=== PATIENT | male | born 1955 | race Caucasian/White ===

== ENCOUNTER → 2020-05-08 | Outpatient (CLI) | payer SELFPAY ==
[~2020-05-08] MED LIST: ACET500T15 PO; ASPI81CH4 PO; ASPI81TA86 PO; CAND32TA9 PO; CART240C3 PO; CARV6.25 PO; CENTTAB47 PO; CHLO125TA PO; CLONI1TA PO; COQ-100C5 PO; COZA100T2 PO; DILT240C28 PO; DILT30TA PO; HYDR-2541 PO; HYDR100T PO; LIPI20TA PO; LORA0.5T5 PO; LOSA100T5 PO; NASA0.0517; NEXI40CA PO; NORV5TAB PO; PANT20TA6 PO; PLAV1TAB2 PO; POTA10TA16 PO; PROTPAK PO; ROSU5TAB5 PO; TYLE325T5 PO; VENTAER INH; VITMTA PO; ZETI10TA16 PO
== END ==
LOC: M LABSMTC 10:56
PROVIDERS: ATTEND Anesthesiology
DX: Z01.812 Encounter for preprocedural laboratory examination (principal); Z20.822 Contact with and (suspected) exposure to COVID-19

== ENCOUNTER 2020-05-13 06:15 | Inpatient (IN) | payer BC ==
[2020-05-13] VITALS (17 sets, daily range): BP systolic 106–147; BP diastolic 49–65
[~2020-05-13] VITALS: Ht 182.9 cm; Wt 107.2 kg
[2020-05-13] MEDS ORDERED: ceFAZolin SOD 2 GM in IV 1 EA IV ONE (06:20)
[2020-05-13] MEDS ORDERED: LR 1,000 ML IV ONE (06:20)
[2020-05-13 06:57] LABS: HEMATOCRIT 46.2 % (42.0-52.0); HEMOGLOBIN 16.1 g/dl (13.5-17.5); MEAN CORPUSCULAR HEMOGLOBIN 30.6 pg (27.0-33.0); MEAN CORPUSCULAR HGB CONC 34.8 g/dl (32.0-36.5); MEAN CORPUSCULAR VOLUME 87.7 fl (80.0-96.0); PLATELET COUNT, AUTOMATED 247 10^3/uL (150-450); RED BLOOD COUNT 5.27 10^6/uL (4.30-6.10); WHITE BLOOD COUNT 9.3 10^3/uL (4.0-10.0)
[2020-05-13 07:06] LABS: INR 1.04; PROTHROMBIN TIME 13.8 SECONDS (12.5-14.3)
[2020-05-13 07:07] LABS: PARTIAL THROMBOPLASTIN TIME 25.9 SECONDS (24.2-38.5)
[2020-05-13] MEDS ORDERED: propofoL 200 MG/20 ML VIAL As Ordered ONE ×2 (07:08→10:08)
[2020-05-13] MEDS ORDERED: ROCURONIUM BROMIDE 50 MG/5 ML VIAL As Ordered ONE ×3 (07:09→09:42)
[2020-05-13] MEDS ORDERED: ONDANSETRON 4MG/2ML VIAL As Ordered ONE (07:09)
[2020-05-13] MEDS ORDERED: LIDOCAINE 2% 100MG/5ML SDV (FOR ANES.) As Ordered ONE (07:09)
[2020-05-13] MEDS ORDERED: fentaNYL 100 MCG/2 ML INJECTION (J3010) As Ordered ONE ×2 (07:09→08:32)
[2020-05-13] MEDS ORDERED: MIDAZOLAM INJ 2MG/2ML VIAL (J2250 PER 1MG) As Ordered ONE (07:09)
[2020-05-13] MEDS ORDERED: dexameTHASONE 4 MG/ML 1ML VIAL (J1100 PER 1MG) As Ordered ONE (07:09)
[2020-05-13] MEDS ORDERED: EPINEPHrine INJ 1 MG/ML 1ML AMP As Ordered ONE (07:10)
[2020-05-13] MEDS ORDERED: THROMBIN SOLN 20,000 UNITS KIT As Ordered ONE (07:13)
[2020-05-13] MEDS ORDERED: HEPARIN SOD (PORCINE) 5000UNITS/ML 1ML VIAL/SYRINGE As Ordered ONE ×2 (07:13→07:16)
[2020-05-13] MEDS ORDERED: LIDOCAINE 1% SDV 30ML VIAL As Ordered ONE (07:13)
[2020-05-13] MEDS ORDERED: BUPIVACAINE HCL 0.25% 30ML VIAL As Ordered ONE (07:13)
[2020-05-13 07:21] LABS: BLOOD UREA NITROGEN 25 MG/DL (7-18); CALCIUM LEVEL 9.3 MG/DL (8.8-10.2); CARBON DIOXIDE LEVEL 30 MEQ/L (21-32); CHLORIDE LEVEL 106 MEQ/L (98-107); CREATININE FOR GFR 1.12 MG/DL (0.70-1.30); GLOMERULAR FILTRATION RATE > 60.0 (>49); GLUCOSE, FASTING 125 MG/DL (70-100); POTASSIUM SERUM 3.6 MEQ/L (3.5-5.1); SODIUM LEVEL 140 MEQ/L (136-145)
[2020-05-13] MEDS ORDERED: NITROGLYCERIN IN D5W 25MG/250ML (100MCG/ML) As Ordered ONE ×2 (07:25→11:30)
[2020-05-13] MEDS ORDERED: PHENYLephrine 500MCG 5ML (100MCG/ML) SYRINGE As Ordered ONE ×2 (08:11→08:43)
[2020-05-13] MEDS ORDERED: BUPIVACAINE/EPIN 0.25% 30 ML VIAL As Ordered ONE (08:39)
[2020-05-13] MEDS ORDERED: ePHEDrine SULFATE 25 MG/5 ML(5MG/ML) SYRINGE As Ordered ONE ×3 (08:43→09:24)
[2020-05-13] MEDS: MULTIVITAMINS/MINERALS THERAP 1 TAB PO SCH (09:00)
[2020-05-13] MEDS ORDERED: SUGAMMADEX SODIUM 500 MG/5 ML VIAL (BRIDION) As Ordered ONE (10:08)
[2020-05-13] MEDS ORDERED: ACETAMINOPHEN 1000MG 100ML IV BTL (OFIRMEV) (J0131 PER 10MG) As Ordered ONE (10:08)
[2020-05-13] MEDS ORDERED: LABETALOL 100MG/20ML VIAL IV PRN (10:45)
[2020-05-13] MEDS ORDERED: CHLORASEPTIC SPRAY MT PRN (10:45)
[2020-05-13] MEDS ORDERED: hydrALAZINE 20MG/ML 1ML VIAL (J0360 PER 20MG) IV PRN (10:45)
[2020-05-13] MEDS ORDERED: PERCOCET 5MG/325MG TAB PO PRN ×2 (10:45)
[2020-05-13] MEDS ORDERED: ONDANSETRON 4MG/2ML VIAL IV PRN ×2 (10:45→11:10)
--- NOTE | 2020-05-13 10:45 | ROOPDOC ---
[facility] Report Of Operation Report of Operation DATE OF PROCEDURE: 05/13/20 PREPROCEDURE DIAGNOSES: Symptomatic right carotid stenosis POSTPROCEDURE DIAGNOSES: Same PROCEDURE: Right carotid endarterectomy with xenosure patch angioplasty SURGEON: Lexus Rucker MD ANESTHESIA: Gen. anesthesia and local INDICATION FOR PROCEDURE: This is a very pleasant 64-year-old patient with symptomatic right carotid stenosis with amaurosis fugax, with 75-80% ICA stenosis present on the right. Risks benefits and alternatives to a right carotid endarterectomy were explained to the patient and he is agreeable to pr oceed. He completed his stress test yesterday, and are anesthesia team and I have reviewed this and feel the patient is a suitable candidate to proceed with endarterectomy today. Informed consent was obtained. REPORT OF OPERATION: The patient was brought to the operating room in stable condition. General anesthesia and antibiotics were administered without complication. His right neck and chest were prepped and draped in a sterile fashion. A timeout was performed. Local anesthesia was a blow off worker to the skin and subcutaneous tissue over the anterior border of the right sternocleidomastoid. An incision was made obliquely over the anterior border of the sternocleidomastoid. This was carried down to the subcutaneous tissue and the platysma with Bovie cautery. The jugular vein was identified and skeletonized along its medial border. Branching veins were carefully suture ligated and divided. We dissected down to the common carotid artery which was skeletonized proximally and distally. A vessel loop was placed. We dissected onto the external carotid artery and the superior thyroid artery and external carotid artery were skeletonized and Vesseloops were placed. We identified the hypoglossal nerve. The internal carotid artery was deep, with plaque extending fairly distal into the artery, so we needed to dissect cranially beyond the hypoglossal nerve. We carefully mobilized it is much as we could without disturbing it too much. 5000 units of heparin was given a lot circulate. A vessel loop was placed distally on the internal carotid artery beyond the area of palpable plaque. We then secured the Vesseloops. An arteriotomy was made from the common carotid artery up over the bulb beyond the plaque into the internal carotid artery. We placed a shunt into the internal carotid artery and noted good backbleeding. We then placed the proximal end of the shunt and the common carotid artery and both Vesseloops are resecured. Flow was confirmed through the shunt with a Doppler. Next, we performed the endarterectomy and all plaque and loose intima was removed. We noticed that the patient had very thick friable granular plaque along with some smooth plaque as well. This was sent for pathology. Once we were satisfied with the endarterectomy and had a good endpoint proximally and distally, and had successfully remove plaque from the external carotid artery, we irrigated with heparinized saline. We then selected a xenosure patch and anastomosis in a running fashion with 5-0 Prolene hemostatic suture. Before the final sutures are placed, we flushed inflow and outflow arteries and irrigated with heparinized saline. We removed the shunt. We irrigated again with heparinized saline. We then placed the final sutures. We restart flow first through the external carotid artery and superior thyroid ar felipe, then the common carotid artery, and lastly through the internal carotid artery. We had a small amount of bleeding from the proximal patch on the distal internal carotid artery, but were able to carefully gain good patch hemostasis with a Prolene stitch. We irrigated with saline. Surgicel was placed over the patch for a minute and good hemostasis was noted. We irrigated again with saline. A ANASTASIIA drain was placed and sutured at the skin with a nylon suture placed to bulb suction. We then approximated the deep tissues with interrupted 2-0 Vicryl suture. We closed the platysmal layer with a running 2-0 Vicryl suture. We approximated the deep dermal layer with interrupted 4-0 Vicryl suture. The skin was closed with 4-0 subcuticular Monocryl suture. Incision was clean and dry. Mastisol and Steri-Strips were used to dress the incisions. A drain sponge was placed around the drain. The patient was then allowed to awaken from anesthesia. He was able to follow commands and move his left upper and lower extremity equal to his right. We then extubated him and took him to recovery in stable condition. No focal neurologic deficits were noted. ESTIMATED BLOOD LOSS: Approximately 200 mL. COMPLICATIONS: None. PLAN: The patient will be admitted to the hospitalist service, ICU. We will continue to follow his neurovascular checks and monitor his right neck for hematoma. We will continue aspirin Plavix in the perioperative period to minimize risk of perioperative stroke. We will monitor the blood pressure with a goal systolic blood pressure less than 150 mmHg, heart rate goal less than 80. We will keep the head of bed elevated, okay for ice to the right neck, and monitor drain output from the ANASTASIIA drain. We will give him a regular diet. If the patient is stable in the morning, we will plan to discontinue the arterial line and ambulate the patient, and if this also goes well, the patient will be able to discharge home from the ICU tomorrow. We appreciate the opportunity to participate in the care of this patient. LEXUS RUCKER MD May 13, 2020 10:45
[2020-05-13] MEDS ORDERED: oxyCODONE 5MG TAB PO PRN (11:10)
[2020-05-13] MEDS ORDERED: fentaNYL 100 MCG/2 ML INJECTION (J3010) IV PRN (11:10)
[2020-05-13] MEDS ORDERED: LR 1,000 ML IV SCH (11:10)
[2020-05-13] MEDS ORDERED: ALBUTEROL 90 MCG/ACT 8GM HFA INHALER INH PRN (12:15)
[2020-05-13] MEDS ORDERED: PILL CUTTER 1 EACH XX PRN (13:00)
--- NOTE | 2020-05-13 13:02 | HPEPDOC ---
[facility] Medical History & Physical Date of Admission May 13, 2020 Date of Service: May 13, 2020 Attending Physician: Isa Cano MD History and Physical HISTORY OF PRESENT ILLNESS: Patient is a 64-year-old male with past medical history of hypertension, anxiety, asthma, heart disease, stroke, right carotid artery stenosis who had elective right carotid artery endarterectomy on 05/13/[address] Rucker. According to notes, the patient had amaurosis fugax early 04/2020, leading to a carotid artery US being done and 70-80% stenosis of the R carotid artery being found. Options were discussed with patient and ultimately elective surgery was chosen. Pre-, intra- and post-operative there were no complications. EBL 200 mL. Upon evaluation in PACU, patient had no acute complaints. VS were stable, pain controlled. He was admitted to ICU for close monitoring overnight, vascular surgery consulted to follow. REVIEW OF SYSTEMS: CONSTITUTIONAL: Denies lack of energy, unexplained weight gain or weight loss, loss of appetite, fever, night sweats EYES: Denies eye drainage, eye pain, visual changes, dry/irritated eye EARS, NOSE, MOUTH, THROAT: Denies difficulty hearing, ringing in ears, mouth sores, loose teeth, sore throat, facial numbness or pain NECK: Denies swollen glands CARDIOVASCULAR: Denies irregular heartbeat, racing heart, chest pains, swelling of feet or legs, pain in legs with walking RESPIRATORY: Denies shortness of breath, night sweats, wheezing, sputum production, oxygen at home, coughing up blood, cough lasting > 1 month GASTROINTESTINAL: Denies abdominal pain, constipation, bloody stool, diarrhea, heartburn, nausea, vomiting GENITOURINARY: Denies painful urination, bloody urine, frequent urination, urgency, leaking urine, impotence MUSCULOSKELETAL: Denies joint pain, muscle pain, leg swelling INTEGUMENTARY: Denies rash, itching, new skin lesion, change in existing skin lesion, hair loss or increase, breast changes. NEUROLOGICAL: Denies headaches, dizziness, difficulty walking, numbness or tingling PSYCHIATRIC: Denies depression, anxiety, recurrent bad thoughts, mood swings, hallucinations PAST MEDICAL HISTORY: hypertension, anxiety, asthma, heart disease, stroke, right carotid artery stenosis, HLD, OA, CVA/TIA, aortic aneurysm thoracic PAST SURGICAL HISTORY: [id number] Repair of right leg [id number] Cataract [id number]/14/2017 and 06/28/2017 Right knee [id number]/2018 Right shoulder [id number]/25/2018 FAMILY HISTORY: cancer, heart disease, HTN SOCIAL HISTORY: Denies smoking or illicit drug use. Social alcohol use. Full code. ALLERGIES: Please see below. HOME MEDICATIONS: Please see below. PHYSICAL EXAMINATION: VS: Please see below CONSTITUTIONAL: No acute distress, resting comfortably, AAO x 3 EYES: PERRLA, EOM intact HENT, MOUTH: ANASTASIIA drain in right side of neck. Normocephalic, atraumatic, moist mucous membranes, NC in place NECK: SUPPLE, no JVD, no lymphadenopathy, no carotid bruit CV: Regular rate and rhythm, S1S2 normal, no murmurs/rubs/gallops RESPIRATORY: Clear to auscultation bilaterally, no rales/rhonchi/wheezes GI: BS positive in 4 quadrants, soft, nontender, nondistended, no rebound or guarding, no organomegaly : Deferred MUSCULOSKELETAL: radial A line present in LUE. Normal ROM of all extremities. No cyanosis, clubbing, swelling, joint deformity, +1 pitting lower extremity edema INTEGUMENTARY: Intact, no rashes, no lesions, no erythema NEUROLOGIC: Cranial Nerves II-XII are intact, no focal deficits PSYCHIATRIC: Mood and affect are normal LABORATORY DATA: Please see below IMAGING: None ASSESSMENT: Patient is a 64-year-old male with past medical history of hypertension, anxiety, asthma, heart disease, stroke, right carotid artery stenosis who had elective right carotid artery endarterectomy on 05/13/[address] Rucker. Admitted overnight for observation in ICU PLAN: Right carotid artery stenosis s/p right carotid endarterectomy -BP and pain controlled -Admitting to ICU for close monitoring, directions for strict BP control by vascular surgery, A line in place -C/w ASA, plavix, statin -Vascular surgery to follow HTN -Stable -C/w home meds, hydralazine PRN Anxiety -Stable Asthma -Stable -Albuterol PRN CAD -c/w BB, ASA, plavix, statin TIA/CVA -ASA, statin, plavix GI px -PPI DVT px -Teds DISPOSITION: Admitted to ICU for close monitoring overnight. Vascular surgery consulted. Plan is discharge home when medically improved. Vital Signs Vital Signs Date Time Temp Pulse Resp B/P (MAP) Pulse Ox O2 Delivery O2 Flow Rate FiO2 05/13/20 11:40 97.6 56 18 123/68 (86) 96 Nasal Cannula 2.0 Laboratory Data Labs 24H Laboratory Tests 2 05/13/20 06:37: Nucleated Red Blood Cells % (auto) 0.0, Prothrombin Time 13.8, Prothromb Time International Ratio 1.04, Activated Partial Thromboplast Time 25.9, Anion Gap 4L, Glomerular Filtration Rate > 60.0, Calcium Level 9.3 CBC/BMP Laboratory Tests 05/13/20 06:37 Home Medications Scheduled Amlodipine Besylate (Norvasc) 5 Mg Tab, 5 MG PO DAILY Aspirin (Aspirin) 81 Mg Tab.chew, 81 MG PO QPM Candesartan Cilexetil (Candesartan Cilexetil) 32 Mg Tablet, 32 MG PO DAILY Carvedilol (Carvedilol) 6.25 Mg Tablet, 6.25 MG PO BID Chlorthalidone (Chlorthalidone) 25 Mg Tablet, 12.5 MG PO DAILY Clopidogrel Bisulfate (Plavix) 75 Mg Tab, 75 MG PO DAILY Ezetimibe (Zetia) 10 Mg Tablet, 10 MG PO DAILY Multivitamins (Thera M Plus Tablet) 1 Each Tablet, 1 TAB PO DAILY Pantoprazole Sodium (Pantoprazole Sodium) 20 Mg Tablet.dr, 20 MG PO DAILY Potassium Chloride (Potassium Chloride) 10 Meq Tab.er.prt, 10 MEQ PO DAILY Rosuvastatin Calcium (Rosuvastatin Calcium) 5 Mg Tablet, 5 MG PO QPM Ubidecarenone (Coq-10) 100 Mg Capsule, 100 MG PO DAILY Scheduled PRN Acetaminophen (Acetaminophen) 500 Mg Tablet, 500 MG PO PRN PRN for PAIN Albuterol Sulfate (Ventolin Hfa) 18 Gm Hfa.aer.ad, 2 PUFFS INH QID PRN for DYSPNEA Allergies Coded Allergies: lisinopril (Verified Allergy, Intermediate, scratchy throat, 04/29/20) Vtkrjqb-Joa-Gtd Reductase Inhibitor (Verified Adverse Reaction, Intermediate, muscle aches, 04/29/20) A-FIB/CHADSVASC A-FIB History Current/History of A-Fib/PAF?: No Current PO Anticoag Therapy: No Age/Risk Factor Scoring CHADSVASC: CHADSVASC Response (Comments) Value Age Risk Factor Age < 65 years old 0 Gender Risk Factor Male 0 Hx of CHF No 0 Hx of HTN Yes 1 Hx of Stroke/TIA/or VTE Yes 2 Hx of Diabetes No 0 Hx of Vascular Disease No 0 Total 3 Treatment Treatment ordered: Other Other anticoagulant ordered: Isa Mukherjee MD May 13, 2020 13:02
[2020-05-13] MEDS: CARVedilol 6.25 MG TAB PO SCH (20:23)
[2020-05-13] MEDS ORDERED: EZETIMIBE 10 MG TAB (ZETIA) PO SCH (21:00)
[2020-05-13] MEDS ORDERED: ASPIRIN 81 MG CHEW TABLET PO SCH (21:00)
[2020-05-13] MEDS ORDERED: CANDESARTAN 16 MG TABLET PO SCH (21:00)
[2020-05-13] MEDS ORDERED: ROSUVASTATIN 10 MG TAB (CRESTOR) PO SCH (21:00)
[2020-05-14] VITALS (9 sets, daily range): BP systolic 110–131; BP diastolic 47–65
[2020-05-14 04:45] LABS: MEAN CORPUSCULAR HEMOGLOBIN 30.8 pg (27.0-33.0); MEAN CORPUSCULAR HGB CONC 34.7 g/dl (32.0-36.5); MEAN CORPUSCULAR VOLUME 88.6 fl (80.0-96.0); PLATELET COUNT, AUTOMATED 211 10^3/uL (150-450); RED BLOOD COUNT 4.29 10^6/uL (4.30-6.10); WHITE BLOOD COUNT 17.7 10^3/uL (4.0-10.0)
[2020-05-14 04:59] LABS: HEMOGLOBIN 13.2 g/dl (13.5-17.5)
[2020-05-14 05:05] LABS: BLOOD UREA NITROGEN 25 MG/DL (7-18); CALCIUM LEVEL 8.7 MG/DL (8.8-10.2); CARBON DIOXIDE LEVEL 28 MEQ/L (21-32); CHLORIDE LEVEL 108 MEQ/L (98-107); CREATININE FOR GFR 1.04 MG/DL (0.70-1.30); GLOMERULAR FILTRATION RATE > 60.0 (>49); GLUCOSE, FASTING 150 MG/DL (70-100); POTASSIUM SERUM 3.6 MEQ/L (3.5-5.1); SODIUM LEVEL 140 MEQ/L (136-145)
[2020-05-14] MEDS ORDERED: CHLORTHALIDONE 12.5MG PER 1/2 TABLET PO SCH (09:00)
[2020-05-14] MEDS ORDERED: amLODIPine 5 MG TAB PO SCH (09:00)
[2020-05-14] MEDS ORDERED: POTASSIUM CHLORIDE 10 MEQ SR TABLET PO SCH (09:00)
[2020-05-14] MEDS ORDERED: CLOPIDOGREL 75 MG TAB PO SCH (09:00)
[2020-05-14] MEDS ORDERED: PANTOPRAZOLE 20 MG TAB PO SCH (09:00)
[2020-05-14] MEDS ORDERED: PERCOCET PO ×2 (09:03→09:05)
[2020-05-14] MEDS ORDERED: ACET-907 PO (09:03)
--- NOTE | 2020-05-14 09:07 | IPNPDOC ---
Date Seen The patient was seen on 05/14/20. Progress Note Patient seen and examined postop day 1 status post right carotid endarterectomy with patch angioplasty. He is doing well. He is tolerating a diet. We had to do a pretty high dissection due to very distal plaque in the internal carotid artery, and mobilized the hypoglossal nerve to do this, and he did have some tongue deviation to the right yesterday that has improved today. His tongue is almost midline. He complained of some mild numbness anterior to the incision on the neck, which is expected after surgical incision. He has no significant swelling or tenderness over the incision. The Steri-Strips are clean dry and intact. ANASTASIIA drain is minimal output and was removed today. Steri-Strips and a dry dressing were placed over the open aspect after drain removal. The patient tolerated this well. He is urinating without difficulty. His blood pressure and heart rate are at his baseline. No significant hypo-or hypertension postop. He has minimal complaints of pain and has not required narcotics. His speech is clear. He moves all extremities equally. He has equal strength in the left and right upper extremities and left and right lower extremities. I discussed with the patient that if he is able to ambulate today after discontinuation of his arterial line, he will be okay to DC home from a vascular standpoint. Discharge instructions: Follow-up 1 week to check incision. Follow-up in one month for repeat carotid duplex postop. Try to leave Steri-Strips intact for 1 week to help incisions to heal. Okay to remove gauze and paper tape later today if no drainage from the ANASTASIIA site. Okay to shower, use baby shampoo until incision completely healed, Pat incision dry after shower with clean towel. Try to sit up as much as possible to minimize swelling in the neck over the next few days, and ice to the neck if needed for comfort. No strenuous exercise or lifting greater than 5 pounds for 1 week. No driving for 1 week. We appreciate the opportunity to participate in the care of this patient. VS, I&O, 24H, Fishbone Vital Signs/I&O Vital Signs Date Time Temp Pulse Resp B/P (MAP) Pulse Ox O2 Delivery O2 Flow Rate FiO2 05/14/20 06:00 54 131/57 97 Room Air 110/56 4/8/21 05:00 18 05/14/20 04:00 97.0 05/13/20 11:40 2.0 I&O- Last 24 Hours up to 6 AM 05/14/20 06:00 Intake Total 555 ml Output Total 1015 ml Balance -460 ml Laboratory Data 24H LABS Laboratory Tests 2 05/14/20 04:16: Nucleated Red Blood Cells % (auto) 0.0, Anion Gap 4L, Glomerular Filtration Rate > 60.0, Calcium Level 8.7L CBC/BMP Laboratory Tests 05/14/20 04:16 BLANCO FITZPATRICK MD May 14, 2020 09:07
[2020-05-14] MEDS: MULTIVITAMINS/MINERALS THERAP 1 TAB PO SCH (09:41)
[2020-05-14] MEDS: CARVedilol 6.25 MG TAB PO SCH (09:42)
--- NOTE | 2020-05-14 13:42 | DS.PDOC ---
Discharge Summary General Date of Admission May 13, 2020 at 06:15 Date of Discharge 05/14/20 Attending Physician: Isa Cano MD Discharge Summary HISTORY OF PRESENT ILLNESS: Patient is a 64-year-old male with past medical history of hypertension, anxiety, asthma, heart disease, stroke, right carotid artery stenosis who had elective right carotid artery endarterectomy on 05/13/[address] Rucker. According to notes, the patient had amaurosis fugax early 04/2020, leading to a carotid artery US being done and 70-80% stenosis of the R carotid artery being found. Options were discussed with patient and ultimately elective surgery was chosen. Pre-, intra- and post-operative there were no complications. EBL 200 mL. Upon evaluation in PACU, patient had no acute complaints. VS were stable, pain controlled. He was admitted to ICU for close monitoring overnight, vascular surg aamir consulted to follow. HOSPITAL COURSE: No acute events overnight. Tolerated diet well. Complained of some neck numbness, tongue numbness likely 2/2 to surgical incision, hypoglossal nerve mobilization- per vascular, improving and will f/u. no other neuro deficits. Ambulated well today, labs were stable. VS stable. Patient's right neck drain was removed and he was discharged home with ASA, statin, plavix to continue. He will f/u with Dr. Rucker as o/p. PAST MEDICAL HISTORY: hypertension, anxiety, asthma, heart disease, stroke, right carotid artery stenosis, HLD, OA, CVA/TIA, aortic aneurysm thoracic PAST SURGICAL HISTORY: [id number] Repair of right leg [id number] Cataract [id number]/14/2017 and 06/28/2017 Right knee [id number]/2018 Right shoulder [id number]/25/2018 FAMILY HISTORY: cancer, heart disease, HTN SOCIAL HISTORY: Denies smoking or illicit drug use. Social alcohol use. Full code. ALLERGIES: Please see below. HOME MEDICATIONS: Please see below. PHYSICAL EXAMINATION: VS: Please see below CONSTITUTIONAL: No acute distress, resting comfortably, AAO x 3 EYES: PERRLA, EOM intact HENT, MOUTH: Normocephalic, atraumatic, moist mucous membranes. right neck incision appears clean NECK: SUPPLE, no JVD, no lymphadenopathy, no carotid bruit CV: Regular rate and rhythm, S1S2 normal, no murmurs/rubs/gallops RESPIRATORY: Clear to auscultation bilaterally, no rales/rhonchi/wheezes GI: BS positive in 4 quadrants, soft, nontender, nondistended, no rebound or guarding, no organomegaly : Deferred MUSCULOSKELETAL: radial A line present in LUE. Normal ROM of all extremities. No cyanosis, clubbing, swelling, joint deformity, +1 pitting lower extremity edema INTEGUMENTARY: Intact, no rashes, no lesions, no erythema NEUROLOGIC: numbness to sharp and dull touch to toungue, right side face, no facial droop. No focal deficits PSYCHIATRIC: Mood and affect are normal LABORATORY DATA: Please see below IMAGING: None ASSESSMENT: Patient is a 64-year-old male with past medical history of hypertension, anxiety, asthma, heart disease, stroke, right carotid artery stenosis who had elective right carotid artery endarterectomy on 05/13/[address] Rucker. Admitted overnight for observation in ICU PLAN: Right carotid artery stenosis s/p right carotid endarterectomy -BP and pain controlled -C/w home BP meds, ASA, plavix, statin -Vascular surgery to follow as o/p. wound care for incision given to patient p rior to discharge. Tongue numbness likely 2/2 to hypoglossal nerve mobilzation -Improved today -F/u with Dr. Rucker Neck numbness -No focal deficits -Per vascular surgery, likely 2/2 to surgical incision -F/u with vascular o/p HTN -Stable -C/w home meds Anxiety -Stable Asthma -Stable -Albuterol PRN CAD -c/w BB, ASA, plavix, statin TIA/CVA -ASA, statin, plavix DISPOSITION: Discharged home to f/u with Dr. Rucker as o/p. TIME SPENT ON DISCHARGE: 35 minutes. Vital Signs/I&Os Vital Signs Date Time Temp Pulse Resp B/P (MAP) Pulse Ox O2 Delivery O2 Flow Rate FiO2 05/14/20 09:41 56 121/65 05/14/20 08:00 98.1 22 96 Room Air 05/13/20 11:40 2.0 I&O- Last 24 Hours up to 6 AM 05/14/20 06:00 Intake Total 555 ml Output Total 1015 ml Balance -460 ml Laboratory Data Labs 24H Laboratory Tests 2 05/14/20 04:16: Nucleated Red Blood Cells % (auto) 0.0, Anion Gap 4L, Glomerular Filtration Rate > 60.0, Calcium Level 8.7L CBC/BMP Laboratory Tests 05/14/20 04:16 Discharge Medications Scheduled Amlodipine Besylate (Norvasc) 5 Mg Tab, 5 MG PO DAILY, (Reported) Aspirin (Aspirin) 81 Mg Tab.chew, 81 MG PO QPM, (Reported) Candesartan Cilexetil (Candesartan Cilexetil) 32 Mg Tablet, 32 MG PO DAILY, (Reported) Carvedilol (Carvedilol) 6.25 Mg Tablet, 6.25 MG PO BID, (Reported) Chlorthalidone (Chlorthalidone) 25 Mg Tablet, 12.5 MG PO DAILY, (Reported) Clopidogrel Bisulfate (Plavix) 75 Mg Tab, 75 MG PO DAILY, (Reported) Ezetimibe (Zetia) 10 Mg Tablet, 10 MG PO DAILY, (Reported) Multivitamins (Thera M Plus Tablet) 1 Each Tablet, 1 TAB PO DAILY, (Reported) Pantoprazole Sodium (Pantoprazole Sodium) 20 Mg Tablet.dr, 20 MG PO DAILY, (Reported) Potassium Chloride (Potassium Chloride) 10 Meq Tab.er.prt, 10 MEQ PO DAILY, (Reported) Rosuvastatin Calcium (Rosuvastatin Calcium) 5 Mg Tablet, 5 MG PO QPM, (Reported) Ubidecarenone (Coq-10) 100 Mg Capsule, 100 MG PO DAILY, (Reported) Scheduled PRN Acetaminophen (Tylenol) 325 Mg Tablet, 650 MG PO Q6HP PRN for PAIN OR FEVER Albuterol Sulfate (Ventolin Hfa) 18 Gm Hfa.aer.ad, 2 PUFFS INH QID PRN for DYSP LAKESHIA, (Reported) Allergies Coded Allergies: lisinopril (Verified Allergy, Intermediate, scratchy throat, 04/29/20) Eotmiay-Nzu-Hyb Reductase Inhibitor (Verified Adverse Reaction, Intermediate, muscle aches, 04/29/20) Isa Cano MD May 14, 2020 13:42
== END 2020-05-14 11:35 | disposition home or self-care (01) | DRG 24 ==
LOC: M OR 06:15 → M ICU 12:30
PROVIDERS: ADMIT Surgery Vascular Surgery; ATTEND Internal Medicine
PROC: 03UH0JZ Supplement Right Common Carotid Artery with Synthetic Substitute, Open Approach (ICD-10-PCS; 2020-05-13)
PROC: 03CH0ZZ Extirpation of Matter from Right Common Carotid Artery, Open Approach (ICD-10-PCS; principal; 2020-05-13 07:30)
DX: I65.21 Occlusion and stenosis of right carotid artery (principal); I71.2 Thoracic aortic aneurysm, without rupture; I10 Essential (primary) hypertension; F41.9 Anxiety disorder, unspecified; J45.909 Unspecified asthma, uncomplicated; Z86.73 Personal history of transient ischemic attack (TIA), and cerebral infarction without residual deficits; Z98.41 Cataract extraction status, right eye; Z98.42 Cataract extraction status, left eye; I25.10 Atherosclerotic heart disease of native coronary artery without angina pectoris

== ENCOUNTER → 2020-06-17 | Outpatient (CLI) | payer BC ==
[~2020-06-17] MED LIST changes: +ACET-907 PO; +PERCOCET PO
--- NOTE | 2020-06-17 09:59 | REP ---
INDICATION: OCCLUSION / STENOSIS OF DESIREE CAROTIED ARTERIES COMPARISON: None. TECHNIQUE: [place] scale and color Doppler evaluation using linear high frequency transducer Findings: FINDINGS: Two-dimensional [place] scale and color images demonstrate mild to moderate amounts of mixed atheromatous plaquing (left greater than right) with laminar flow and no significant narrowing/stenosis or occlusion. Color Doppler interrogation demonstrates normal arterial wave patterns and velocities with no significant spectral broadening. Normal flow direction is appreciated in the bilateral vertebral arteries. ICA peak systolic velocity: Right 124 cm/s; Left 116 cm/s ICA diastolic velocity: Right 28.6 cm/s; Left 23.0 cm/s ECA peak systolic velocity: Right 203 cm/s; Left 171 cm/s CCA peak systolic velocity: Right 74.6 cm/s; Left 93.8 cm/s ICA/CCA ratio: Right 1.7 cm/s; Left 1.2 cm/s IMPRESSION: No hemodynamically significant areas of narrowing or stenosis appreciated. Based on set standards narrowing falls within the less than 50% range (left greater than right).. <Electronically signed by Mathew Pope > 06/17/20 [id number]
== END ==
LOC: M RAD 09:18
PROVIDERS: ATTEND Surgery Vascular Surgery
DX: I65.23 Occlusion and stenosis of bilateral carotid arteries (principal)

== ENCOUNTER 2022-09-19 16:50 | Emergency (ER) | payer BC, MEDICARE ==
[~2022-09-19] VITALS: Ht 182.9 cm; Wt 104.5 kg
[~2022-09-19 16:50] MED LIST changes: +CAND32TA18 PO; -CAND32TA9 PO; +CLOP75TA99 PO; -COZA100T2 PO; +COZA100T3 PO; -PLAV1TAB2 PO; +POTA-149 PO; -POTA10TA16 PO
[2022-09-19] MEDS ORDERED: CARVedilol 6.25 MG TAB PO ONE (23:45)
[2022-09-19] MEDS ORDERED: CANDESARTAN 16MG TABLET PO SCH (23:45)
[2022-09-20 00:17] VITALS: BP 171/85
[2022-09-20 01:12] VITALS: BP 161/88; TEMP 97.8; O2SAT 98
== END 2022-09-20 00:50 | disposition home or self-care (01) ==
LOC: M ED 16:50
DX: S80.912A Unspecified superficial injury of left knee, initial encounter (principal); M17.12 Unilateral primary osteoarthritis, left knee; J45.909 Unspecified asthma, uncomplicated; I10 Essential (primary) hypertension; F41.9 Anxiety disorder, unspecified; Z86.79 Personal history of other diseases of the circulatory system; Z88.1 Allergy status to other antibiotic agents; Z88.8 Allergy status to other drugs, medicaments and biological substances; Z79.811 Long term (current) use of aromatase inhibitors; Z79.52 Long term (current) use of systemic steroids; Z79.899 Other long term (current) drug therapy